=== PATIENT | male | born 1950 | race African-American/Black ===

== ENCOUNTER 2025-05-27 11:57 | Outpatient (CLI) | payer OTHER | END 2025-05-27 11:58 | disposition home or self-care (01) | LOC: CSHULT 11:57 | PROVIDERS: ATTEND Family Medicine | DX: Z13.6 Encounter for screening for cardiovascular disorders (principal); Z87.891 Personal history of nicotine dependence | CPT/HCPCS: 76706 ==

== ENCOUNTER 2025-09-30 09:41 | Outpatient (CLI) | payer OTHER | END 2025-09-30 09:42 | disposition home or self-care (01) | LOC: CSHULT 09:41 | PROVIDERS: ATTEND Family Medicine | DX: M79.89 Other specified soft tissue disorders (principal) | CPT/HCPCS: 76882 ==